=== PATIENT | female | born 1935 | race African-American/Black ===

== ENCOUNTER 2021-03-14 19:54 | Inpatient (IN) | payer MEDICARE ==
[~2021-03-14] VITALS: Ht 165.1 cm; Wt 81.2 kg
[2021-03-14 23:55] LABS: BASOPHILS % 0.6 % (0.0-2.0); EOSINOPHILS % 2.3 % (0.0-5.0); HEMATOCRIT. 34.8 % (36.0-48.0); HEMOGLOBIN. 11.2 g/dL (12.0-16.0); LYMPHOCYTES % 33.5 % (20.0-50.0); MEAN CORPUSCULAR HEMOGLOBIN 27.3 pg (28.0-32.0); MEAN CORPUSCULAR VOLUME 84.7 fL (81.0-99.0); MEAN PLATELET VOLUME 8.7 fl (7.4-10.4); MONOCYTES % 7.1 % (2.0-8.0); NEUTROPHILS % 56.5 % (40.0-76.0); PLATELET 263 x1000/uL (130-400); RED BLOOD CELL COUNT 4.11 mill/uL (4.2-5.4); RED CELL DISTRIBUTION WIDTH 16.4 % (11.6-14.6)
[2021-03-14 23:59] LABS: CHLORIDE 111 mEq/L (98-107)
[2021-03-15] MEDS ORDERED: LORAZEPAM 2MG/ML CPJ IV ONE (01:15)
[2021-03-15] MEDS ORDERED: HALOPERIDOL LACTATE 5MG/ML VIAL IM ONE (02:15)
[2021-03-15] MEDS ORDERED: ACETAMINOPHEN 325MG TABLET PO PRN ×2 (03:00)
[2021-03-15] MEDS ORDERED: HYDROCODONE/ACETAMINOPHEN 5/325MG TABLET PO PRN (03:00)
[2021-03-15] MEDS ORDERED: MAGNESIUM/ALUMINUM HYDROXIDE/SIMETHICONE 30ML UDC PO PRN (03:00)
[2021-03-15] MEDS ORDERED: GUAIFENESIN 200MG/10ML SUGAR FREE UDC PO PRN (03:00)
[2021-03-15] MEDS ORDERED: ONDANSETRON HCL 4MG/2ML INJ IV PRN (03:00)
[2021-03-15] MEDS ORDERED: NALOXONE HCL 0.4MG/ML VIAL IV PRN (03:15)
[2021-03-15 03:50] LABS: CLARITY URINE CLEAR (CLEAR); COLOR URINE YELLOW (YELLOW); KETONES URINE TRACE (NEGATIVE); LEUKOCYTE ESTERASE URINE 1+ (NEGATIVE); NITRITE URINE NEGATIVE (NEGATIVE); OCCULT BLOOD URINE NEGATIVE (NEGATIVE); PROTEIN URINE NEGATIVE (NEGATIVE); SPECIFIC GRAVITY URINE 1.026 (1.005-1.030)
[2021-03-15 06:06] LABS: FOLIC ACID (FOLATE) SERUM 11.5 ng/mL (>5.38)
[2021-03-15] MEDS: ENOXAPARIN 40MG/0.4ML SYR SUBCUT SCH (09:45)
[2021-03-15] MEDS: HYDRALAZINE 20MG/ML VIAL IV PRN ×2 (10:26→20:26)
[2021-03-15] MEDS: SODIUM CHLORIDE 0.45% 1,000 ML IV SCH ×2 (12:15→20:26)
[2021-03-15 13:09] LABS: BASOPHILS % 0.8 % (0.0-2.0); EOSINOPHILS % 1.4 % (0.0-5.0); HEMATOCRIT. 34.6 % (36.0-48.0); HEMOGLOBIN. 11.2 g/dL (12.0-16.0); LYMPHOCYTES % 23.4 % (20.0-50.0); MEAN CORPUSCULAR HEMOGLOBIN 27.1 pg (28.0-32.0); MEAN CORPUSCULAR VOLUME 84.2 fL (81.0-99.0); MEAN PLATELET VOLUME 8.7 fl (7.4-10.4); MONOCYTES % 6.8 % (2.0-8.0); NEUTROPHILS % 67.6 % (40.0-76.0); PLATELET 272 x1000/uL (130-400); RED BLOOD CELL COUNT 4.11 mill/uL (4.2-5.4); RED CELL DISTRIBUTION WIDTH 16.4 % (11.6-14.6)
[2021-03-15] MEDS: FERROUS SULFATE 325MG TABLET PO SCH (13:10)
[2021-03-15 13:16] LABS: CHLORIDE 108 mEq/L (98-107)
[2021-03-15 16:00] VITALS: BP 156/82
[2021-03-15 16:02] VITALS: BP 156/82
[2021-03-15] MEDS ORDERED: LEVOFLOXACIN 500MG TABLET PO SCH (18:45)
[2021-03-15] MEDS ORDERED: LEVE1000 PO (19:03)
[2021-03-15] MEDS ORDERED: ATOR-2 PO (19:03)
[2021-03-15] MEDS ORDERED: METF-873 PO (19:03)
[2021-03-15] MEDS ORDERED: VALS40TA11 MT (19:03)
[2021-03-15] MEDS ORDERED: AMLO5TAB88 PO (19:03)
[2021-03-15] MEDS ORDERED: INSU100C6 SQ (19:03)
[2021-03-15] MEDS ORDERED: LANTUSUD SUBCUT (19:03)
[2021-03-15 20:00] VITALS: BP 178/80
[2021-03-15] MEDS ORDERED: LEVOFLOXACIN 500MG TABLET PO NR (22:00)
[2021-03-16] VITALS: BP 150/75
[2021-03-16 04:00] VITALS: BP 157/78
[2021-03-16] MEDS: SODIUM CHLORIDE 0.45% 1,000 ML IV SCH ×2 (06:20→16:42)
[2021-03-16 06:41] LABS: CHLORIDE 108 mEq/L (98-107)
[2021-03-16 06:48] LABS: PHOSPHORUS 2.7 mg/dL (2.5-4.9)
[2021-03-16 06:56] LABS: HEMOGLOBIN. 11.3 g/dL (12.0-16.0); MEAN CORPUSCULAR HEMOGLOBIN 27.9 pg (28.0-32.0); MEAN CORPUSCULAR VOLUME 86.2 fL (81.0-99.0); MEAN PLATELET VOLUME 9.5 fl (7.4-10.4); PLATELET 244 x1000/uL (130-400); RED BLOOD CELL COUNT 4.06 mill/uL (4.2-5.4); RED CELL DISTRIBUTION WIDTH 16.7 % (11.6-14.6)
[2021-03-16 08:00] VITALS: BP 145/71
[2021-03-16] MEDS: FERROUS SULFATE 325MG TABLET PO SCH (09:36)
[2021-03-16] MEDS: ENOXAPARIN 40MG/0.4ML SYR SUBCUT SCH (09:37)
[2021-03-16 11:23] LABS: PLATELET ESTIMATE NORMAL
[2021-03-16 12:00] VITALS: BP 137/52
[2021-03-16 16:00] VITALS: BP 158/59
[2021-03-16 20:00] VITALS: BP 169/53
[2021-03-16] MEDS ORDERED: LEVOFLOXACIN 250MG TABLET PO SCH (21:00)
[2021-03-17] VITALS: BP 138/52
[2021-03-17] MEDS: SODIUM CHLORIDE 0.45% 1,000 ML IV SCH ×3 (02:16→23:06)
[2021-03-17 04:00] VITALS: BP 151/55
[2021-03-17 08:00] VITALS: BP 174/78
[2021-03-17] MEDS: ENOXAPARIN 40MG/0.4ML SYR SUBCUT SCH (08:43)
[2021-03-17] MEDS: HYDRALAZINE HCL 25MG TABLET PO PRN ×2 (10:22→20:20)
[2021-03-17 12:00] VITALS: BP 155/62
[2021-03-17 15:49] VITALS: BP 147/86
[2021-03-17] MEDS: LEVETIRACETAM 250MG TABLET PO SCH (17:22)
[2021-03-17 20:00] VITALS: BP 169/76
[2021-03-17] MEDS: SULFAMETHOXAZOLE/TRIMETHOPRIM 800/160MG TABLET PO SCH (20:19)
[2021-03-18] VITALS: BP 148/86
[2021-03-18 03:44] VITALS: BP_SYST 117; BP_SYST 156; BP_DIAS 84; BP_DIAS 85
[2021-03-18] MEDS ORDERED: SULF1TAB44 PO (07:40)
[2021-03-18] MEDS ORDERED: KEPP250 PO (07:40)
[2021-03-18] MEDS ORDERED: DEXTL PO (07:40)
[2021-03-18] MEDS ORDERED: HYDR-4134 PO (07:40)
[2021-03-18] MEDS ORDERED: CYAN100T43 PO (07:40)
[2021-03-18] MEDS ORDERED: TOPUD PO (07:40)
[2021-03-18] MEDS ORDERED: MYL30 PO (07:40)
[2021-03-18] MEDS ORDERED: FERR-63 PO (07:40)
[2021-03-18 08:00] VITALS: BP 164/72
[2021-03-18] MEDS: LEVETIRACETAM 250MG TABLET PO SCH ×2 (09:05→22:48)
[2021-03-18] MEDS: CYANOCOBALAMIN 100MCG TABLET PO SCH (09:06)
[2021-03-18] MEDS: SULFAMETHOXAZOLE/TRIMETHOPRIM 800/160MG TABLET PO SCH ×2 (09:06→22:47)
[2021-03-18] MEDS: ENOXAPARIN 40MG/0.4ML SYR SUBCUT SCH (09:07)
[2021-03-18 10:35] LABS: HEMATOCRIT. 33.5 % (36.0-48.0); HEMOGLOBIN. 10.8 g/dL (12.0-16.0); MEAN CORPUSCULAR HEMOGLOBIN 26.9 pg (28.0-32.0); MEAN CORPUSCULAR VOLUME 83.3 fL (81.0-99.0); MEAN PLATELET VOLUME 9.5 fl (7.4-10.4); PLATELET 245 x1000/uL (130-400); RED BLOOD CELL COUNT 4.02 mill/uL (4.2-5.4); RED CELL DISTRIBUTION WIDTH 16.5 % (11.6-14.6)
[2021-03-18 10:40] LABS: CHLORIDE 109 mEq/L (98-107)
[2021-03-18 12:00] VITALS: BP 119/59
[2021-03-18 16:00] VITALS: BP 158/73
[2021-03-18 20:00] VITALS: BP 185/77
[2021-03-18] MEDS: HYDRALAZINE HCL 25MG TABLET PO PRN (23:10)
[2021-03-19] VITALS (7 sets, daily range): BP systolic 125–156; BP diastolic 16–67
[2021-03-19 08:24] LABS: PLATELET ESTIMATE NORMAL
[2021-03-19] MEDS: CYANOCOBALAMIN 100MCG TABLET PO SCH (08:42)
[2021-03-19] MEDS: SULFAMETHOXAZOLE/TRIMETHOPRIM 800/160MG TABLET PO SCH ×2 (08:42→21:43)
[2021-03-19] MEDS: FERROUS SULFATE 325MG TABLET PO SCH (08:42)
[2021-03-19] MEDS: LEVETIRACETAM 250MG TABLET PO SCH ×2 (08:42→21:43)
[2021-03-19] MEDS: ENOXAPARIN 40MG/0.4ML SYR SUBCUT SCH (08:43)
[2021-03-20] VITALS: BP 130/50
[2021-03-20 04:00] VITALS: BP 144/60
[2021-03-20 08:00] VITALS: BP 142/61
[2021-03-20] MEDS: LEVETIRACETAM 250MG TABLET PO SCH ×2 (09:08→20:44)
[2021-03-20] MEDS: SULFAMETHOXAZOLE/TRIMETHOPRIM 800/160MG TABLET PO SCH ×2 (09:08→20:44)
[2021-03-20] MEDS: CYANOCOBALAMIN 100MCG TABLET PO SCH (09:08)
[2021-03-20] MEDS: ENOXAPARIN 40MG/0.4ML SYR SUBCUT SCH (09:11)
[2021-03-20 12:00] VITALS: BP 145/82
[2021-03-20 16:00] VITALS: BP 141/57
[2021-03-20 20:00] VITALS: BP 140/60
[2021-03-21] VITALS: BP 173/71
[2021-03-21] MEDS: HYDRALAZINE HCL 25MG TABLET PO PRN (01:16)
[2021-03-21 04:00] VITALS: BP 129/94
[2021-03-21 08:00] VITALS: BP 149/54
[2021-03-21] MEDS: CYANOCOBALAMIN 100MCG TABLET PO SCH (08:59)
[2021-03-21] MEDS: FERROUS SULFATE 325MG TABLET PO SCH (08:59)
[2021-03-21] MEDS: AMLODIPINE 5MG TABLET PO SCH (08:59)
[2021-03-21] MEDS: SULFAMETHOXAZOLE/TRIMETHOPRIM 800/160MG TABLET PO SCH ×2 (08:59→21:25)
[2021-03-21] MEDS: LEVETIRACETAM 250MG TABLET PO SCH ×2 (08:59→21:25)
[2021-03-21] MEDS: ENOXAPARIN 40MG/0.4ML SYR SUBCUT SCH (09:01)
[2021-03-21] MEDS ORDERED: PNEUMOCOCCAL 23-VAL P-SAC VAC 0.5 ML IM ONE (09:45)
[2021-03-21] MEDS ORDERED: INFLUENZA VACCINE 05/PF 0.5 ML SYRINGE IM ONE (09:45)
[2021-03-21 10:30] LABS: BASOPHILS % 0.6 % (0.0-2.0); EOSINOPHILS % 2.6 % (0.0-5.0); HEMATOCRIT. 34.3 % (36.0-48.0); HEMOGLOBIN. 11.5 g/dL (12.0-16.0); LYMPHOCYTES % 25.9 % (20.0-50.0); MEAN CORPUSCULAR HEMOGLOBIN 28.4 pg (28.0-32.0); MEAN CORPUSCULAR VOLUME 84.9 fL (81.0-99.0); NEUTROPHILS % 64.9 % (40.0-76.0); RED BLOOD CELL COUNT 4.04 mill/uL (4.2-5.4); RED CELL DISTRIBUTION WIDTH 16.6 % (11.6-14.6)
[2021-03-21 11:46] LABS: PLATELET 243 x1000/uL (130-400)
[2021-03-21 12:00] VITALS: BP 140/59
[2021-03-21 16:00] VITALS: BP 139/55
[2021-03-21 20:00] VITALS: BP 122/54
[2021-03-22] VITALS: BP 120/58
[2021-03-22 04:00] VITALS: BP 151/57
[2021-03-22 08:00] VITALS: BP 145/67
[2021-03-22] MEDS: ENOXAPARIN 40MG/0.4ML SYR SUBCUT SCH (09:19)
[2021-03-22] MEDS: CYANOCOBALAMIN 100MCG TABLET PO SCH (09:20)
[2021-03-22] MEDS: LEVETIRACETAM 250MG TABLET PO SCH ×2 (09:20→20:36)
[2021-03-22] MEDS: SULFAMETHOXAZOLE/TRIMETHOPRIM 800/160MG TABLET PO SCH ×2 (09:20→20:36)
[2021-03-22] MEDS: AMLODIPINE 5MG TABLET PO SCH (09:20)
[2021-03-22 12:00] VITALS: BP 131/56
[2021-03-22 16:00] VITALS: BP 129/62
[2021-03-22 20:00] VITALS: BP 146/85
[2021-03-23] VITALS: BP 141/65
[2021-03-23 02:41] VITALS: BP 141/65
[2021-03-23 04:00] VITALS: BP 156/56
[2021-03-23 08:00] VITALS: BP 149/63
[2021-03-23] MEDS: SULFAMETHOXAZOLE/TRIMETHOPRIM 800/160MG TABLET PO SCH (08:21)
[2021-03-23] MEDS: FERROUS SULFATE 325MG TABLET PO SCH (08:21)
[2021-03-23] MEDS: CYANOCOBALAMIN 100MCG TABLET PO SCH (08:21)
[2021-03-23] MEDS: LEVETIRACETAM 250MG TABLET PO SCH (08:21)
[2021-03-23] MEDS: AMLODIPINE 5MG TABLET PO SCH (08:21)
[2021-03-23] MEDS: ENOXAPARIN 40MG/0.4ML SYR SUBCUT SCH (08:22)
[2021-03-23 12:00] VITALS: BP 130/53
== END 2021-03-23 13:01 | DRG 71 ==
LOC: ER 19:54 → 6WST 03-15 02:31 → EDBD 03-15 02:31 → SUPCPDRO 03-15 02:45 → ENRESERV 03-15 14:23 → 6WST 03-17 22:00
PROVIDERS: ADMIT Internal Medicine; ATTEND Internal Medicine
PROC: 4A10X4Z Monitoring of Central Nervous Electrical Activity, External Approach (ICD-10-PCS; principal; 2021-03-19)
DX: G93.41 Metabolic encephalopathy (principal); N13.6 Pyonephrosis; I31.3 Pericardial effusion (noninflammatory); E44.0 Moderate protein-calorie malnutrition; Z16.12 Extended spectrum beta lactamase (ESBL) resistance; N17.9 Acute kidney failure, unspecified; G40.909 Epilepsy, unspecified, not intractable, without status epilepticus; E11.65 Type 2 diabetes mellitus with hyperglycemia; E78.5 Hyperlipidemia, unspecified; F02.80 Dementia in other diseases classified elsewhere, unspecified severity, without behavioral disturbance, psychotic disturbance, mood disturbance, and anxiety; G30.9 Alzheimer's disease, unspecified; I10 Essential (primary) hypertension; D64.9 Anemia, unspecified; I25.10 Atherosclerotic heart disease of native coronary artery without angina pectoris; Z20.822 Contact with and (suspected) exposure to COVID-19; N28.1 Cyst of kidney, acquired; R29.6 Repeated falls; Z79.4 Long term (current) use of insulin; Z79.84 Long term (current) use of oral hypoglycemic drugs; Z82.49 Family history of ischemic heart disease and other diseases of the circulatory system; Z86.73 Personal history of transient ischemic attack (TIA), and cerebral infarction without residual deficits; Z91.14 Patient's other noncompliance with medication regimen; Z91.81 History of falling; Z88.0 Allergy status to penicillin; Z68.29 Body mass index [BMI] 29.0-29.9, adult; B96.20 Unspecified Escherichia coli [E. coli] as the cause of diseases classified elsewhere; R41.0 Disorientation, unspecified; W19.XXXA Unspecified fall, initial encounter
CPT/HCPCS: 36415; 74176; 76770; 80048; 80053; 81003; 82607; 82728; 82746; 82962; 83036; 83540; 83550; 83735; 84100; 84145; 84443; 85025; 87077; 87186; 87426; 90686; 90732; 93005; 95816; 97162; 97165; 97530; 99285; C1893; J0360; J1630; J1650; J2060